=== PATIENT | male | born 1955 | race Caucasian/White ===

== ENCOUNTER 2021-01-05 21:14 | Inpatient (IN) | payer BC ==
[~2021-01-05] VITALS: Ht 180.3 cm; Wt 78.9 kg
[2021-01-05 21:20] VITALS: BP 126/97
[2021-01-05] MEDS ORDERED: CARVEDILOL6.25 M1 PO (21:28)
[2021-01-05] MEDS ORDERED: LISINOPRIL10 MG PO (21:28)
[2021-01-05] MEDS ORDERED: BLOOD THINNER (21:29)
[2021-01-05 21:51] LABS: ABSOLUTE BASOPHILS 0.1 thou/uL (0.0-0.2); ABSOLUTE EOSINOPHILS 0.5 thou/uL (0.0-0.7); ABSOLUTE LYMPHOCYTES 1.8 thou/uL (0.8-5.3); BASOPHILS 1.3 %; EOSINOPHILS 4.8 %; HEMATOCRIT 42.8 % (42.0-52.0); LYMPHOCYTES 17.1 %; MCH 32.3 pg (26.0-34.0); MCHC 35.1 g/dL (28.0-37.0); MCV 91.9 fL (80.0-100.0); MPV 8.6 fl. (7.2-11.1); NUCLEATED RBCS 0 /100WBC; PLATELET COUNT* 242 thou/uL (150-400); POLYS 66.8 %; RBC 4.66 mil/uL (4.50-6.00); RDW-CV 14.7 % (10.5-14.5); WBC 10.5 thou/uL (4.0-11.0)
[2021-01-05 21:57] LABS: CALCIUM 8.6 mg/dL (8.5-10.1); CREATININE 1.2 mg/dL (0.6-1.3); POTASSIUM 3.6 mmol/L (3.5-5.1)
[2021-01-05 22:05] LABS: URINE BILIRUBIN NEGATIVE (Negative); URINE BLOOD NEGATIVE (Negative); URINE CLARITY CLEAR; URINE COLOR YELLOW; URINE GLUCOSE-RANDOM NEGATIVE (Negative); URINE KETONES NEGATIVE (Negative); URINE LEUKOCYTES-REFLEX NEGATIVE (Negative); URINE NITRITE-REFLEX NEGATIVE (Negative); URINE PROTEIN NEGATIVE (Negative); URINE UROBILINOGEN 0.2 E.U./dl (0.2-1.0)
[2021-01-05 22:08] LABS: ALBUMIN 3.6 g/dL (3.4-5.0); MAGNESIUM 1.9 mg/dL (1.8-2.4); TOTAL BILIRUBIN 0.2 mg/dL (<0.1-1.0); TOTAL PROTEIN 6.9 g/dL (6.4-8.2)
[2021-01-06 02:20] VITALS: BP 95/66
[2021-01-06 06:20] VITALS: BP 105/54
[2021-01-06 11:06] VITALS: BP 130/61
--- NOTE | 2021-01-06 11:46 | EKG ---
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 ALBERTO Woo : 1955 Requested By: Brandy Bowie Order Number: [id number] MD: David Taylor Measurements Intervals [place] Rate: 151 P: [place]: QRS: 31 QRSD: 96 T: 193 QT: 284 QTc: 451 Interpretive Statements Atrial fibrillation Repolarization abnormality, prob rate related No previous ECG available for comparison Electronically Signed On 01-06-2021 11:46:46 CDT by David Taylor [email or web address] <ELECTRONICALLY SIGNED> By: David Taylor MD, [facility] 01/06/21 1146 17 17 David Taylor MD, [facility] /EPI
--- NOTE | 2021-01-06 11:52 | EKG ---
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 : 1955 Requested By: Brandy Bowie Order Number: [id number] MD: David Taylor Measurements Intervals [place] Rate: 60 P: 77 [place]: 165 QRS: 25 QRSD: 104 T: QT: 438 QTc: 438 Interpretive Statements Sinus rhythm Inferior infarct, old Abnrm T, consider ischemia, anterolateral lds Baseline wander in lead(s) I Compared to ECG 01/05/2021 21:18:37 Atrial fibrillation no longer present Electronically Signed On 01-06-2021 11:52:14 CDT by David Taylor [email or web address] <ELECTRONICALLY SIGNED> By: David Taylor MD, [facility] 01/06/21 1152 0454 0454 David Taylor MD, [facility] /EPI
[2021-01-06 12:59] VITALS: BP 110/69
[2021-01-06 14:17] LABS: CHOLESTEROL 181 mg/dL (<200); HDL CHOLESTEROL 30 mg/dL (>40); LDL CHOLESTEROL 120 mg/dL (<100); SERUM ASSESSMENT CLEAR; TRIGLYCERIDE 156 mg/dL (<150); VLDL 31 mg/dL (<40)
[2021-01-06 16:00] VITALS: BP 99/70
[2021-01-06] MEDS ORDERED: PLAVIX 75 MG TA75 MG PO (16:27)
[2021-01-06] MEDS ORDERED: LIPITOR40 MG PO (16:27)
[2021-01-06 19:50] VITALS: BP 92/57
[2021-01-07] VITALS (19 sets, daily range): BP systolic 94–141; BP diastolic 58–77
[2021-01-07 04:17] LABS: HEMATOCRIT 36.6 % (42.0-52.0); MCH 31.7 pg (26.0-34.0); MCHC 34.6 g/dL (28.0-37.0); MCV 91.5 fL (80.0-100.0); MPV 9.1 fl. (7.2-11.1); RDW-CV 14.6 % (10.5-14.5); WBC 8.7 thou/uL (4.0-11.0)
[2021-01-07 04:36] LABS: CALCIUM 7.9 mg/dL (8.5-10.1); CREATININE 1.1 mg/dL (0.6-1.3); POTASSIUM 3.9 mmol/L (3.5-5.1)
[2021-01-07 04:42] LABS: HEMOGLOBIN 12.7 gm/dL (14.0-18.0)
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
--- NOTE | 2021-01-07 13:34 | EKG ---
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 : 1955 Requested By: Brandy Bowie Order Number: [id number] Geremias MD: David Taylor Measurements Intervals [place] Rate: 48 P: 76 [place]: 161 QRS: 20 QRSD: 97 T: 154 QT: 454 QTc: 406 Interpretive Statements Sinus bradycardia Atrial premature complex Inferior infarct, old Abnrm T, consider ischemia, anterolateral lds Compared to ECG 01/06/2021 04:54:42 Atrial premature complex(es) now present Sinus rhythm no longer present Myocardial infarct finding still present Possible ischemia still present Electronically Signed On 01-07-2021 13:33:47 CDT by Dvaid Taylor [email or web address] <ELECTRONICALLY SIGNED> By: David Taylor MD, [facility] 01/07/21 1333 0856 0856 David Taylor MD, [facility] /EPI
--- NOTE | 2021-01-07 14:47 | 2DMMODE ---
[place] [address] 2 D/M-MODE ECHOCARDIOGRAM Name: VINNY PATEL Room: [address] IN [facility]#: [id number] Admission: 01/05/21 Attend Phys: Robbie Mayen Discharge: Date of : 59 Date of Service: 01/07/21 1446 Report #: [id number] THIS REPORT FOR: cc: FAM - No family physician/PCP FAM - No family physician/PCP Herbert Zafar MD [facility] ~ APPROVED REPORT Study performed: 01/07/2021 12:19:19 EXAM: Comprehensive 2D, Doppler, and color-flow Echocardiogram Patient Location: In-Patient Room #: 207 Status: routine BSA: 1.99 HR: 44 bpm BP: 108/61 mmHg Rhythm: NSR Other Information Study Quality: Good Indications Acute DC 2D Dimensions IVSd: 12.53 (7-11mm) LVOT Diam: 19.08 (18-24mm) LVDd: 57.27 mm PWd: 11.29 (7-11mm) LVDs: 38.72 (25-40mm) Aortic Root: 30.66 mm Volumes Left Atrial Volume (Systole) LA ESV Index: 33.90 mL/m2 Aortic Valve AoV Peak Claude.: 1.19 m/s AO Peak Gr.: 5.66 mmHg LVOT Max P.48 mmHg AO Mean Gr.: 2.97 mmHg LVOT Mean P.97 mmHg LVOT Max V: 1.17 m/s AO V2 VTI: 28.28 cm LVOT Mean V: 0.62 m/s ALLYSSA (VTI): 2.59 cm2 LVOT V1 VTI: 25.65 cm AI Jones: 1.11 m/s2 [place] [address] 2 D/M-MODE ECHOCARDIOGRAM Name: VINNY PATEL Room: [address]#: [id number] Admission: 01/05/21 Attend Phys: Robbie Mayen Discharge: Date of : 59 Date of Service: 01/07/21 1446 Report #: [id number] AI PHT: 928.47 ms Mitral Valve E/A Ratio: 1.14 MV Decel. Time: 214.06 ms MV E Max Claude.: 0.92 m/s MV PHT: 62.08 ms MVA (PHT): 3.54 cm2 TDI E/Lateral E': 10.22 E/Medial E': 13.14 Medial E' Claude.: 0.07 m/s Lateral E' Claude.: 0.09 m/s Pulmonary Valve PV Peak Claude.: 0.79 m/s PV Peak Gr.: 2.52 mmHg Tricuspid Valve RAP Estimate: 5.00 mmHg TR Peak Gr.: 19.79 mmHg RVSP: 24.00 mmHg PA Pressure: 24.00 mmHg Left Ventricle The left ventricle is normal size. There is mild global hypokinesis. Mild concentric left ventricular hypertrophy. Left ventricular systolic function is mildly decreased. LVEF is 40-45%. Transmitral Doppler flow pattern suggests impaired LV relaxation. Right Ventricle The right ventricle is normal size. The right ventricular systolic function is normal. Atria The left atrium size is normal. The right atrium size is normal. Aortic Valve The aortic valve is normal in structure. Mild aortic regurgitation. There is no aortic valvular stenosis. Mitral Valve The mitral valve is normal in structure. Mild mitral regurgitation. No evidence of mitral valve stenosis. Tricuspid Valve The tricuspid valve [place] [address] 2 D/M-MODE ECHOCARDIOGRAM Name: VINNY PATEL Room: [address]#: [id number] Admission: 01/05/21 Attend Phys: Robbie Mayen Discharge: Date of : 59 Date of Service: 01/07/21 1446 Report #: [id number] regurgitation. No pulmonary hypertension. Pulmonic Valve The pulmonary valve is normal in structure. There is no pulmonic valvular regurgitation. Great Vessels The aortic root is normal in size. IVC is normal in size and collapses >50% with inspiration. Pericardium There is no pericardial effusion. <Conclusion> The left ventricle is normal size. Mild concentric left ventricular hypertrophy. Left ventricular systolic function is mildly decreased. LVEF is 40-45%. Transmitral Doppler flow pattern suggests impaired LV relaxation. There is mild global hypokinesis. Mild aortic regurgitation. Mild mitral regurgitation. Trace tricuspid regurgitation. No pulmonary hypertension. IVC is normal in size and collapses >50% with inspiration. <ELECTRONICALLY SIGNED> By: Herbert Zafar MD, FACC 01/07/21 1446 1446 1446 Herbert Zafar MD, FACC /INF
--- NOTE | 2021-01-07 16:19 | CARD ---
[address] [address] CARDIAC CATH REPORT Name: VINNY PATEL Room: [address] IN [facility]#: [id number] Admission: 01/05/21 Attend Phys: Leah Thompson Discharge: Date of : 59 Report #: [id number] THIS REPORT FOR: cc: FAM - No family physician/PCP FAM - No family physician/PCP Herbert Zafar MD [facility] ~ APPROVED REPORT Study performed: 01/07/2021 13:14:18 Patient Details Patient Status: In-Patient Room #: The patient is a 65 year-old male Event Personnel Herbert Zafar Net Software Engineer, Johanna Rolon RN Recruitment Advertising Manager, Laura Paez RTR Scrub, Pablo Abraham CAPACITY PLANNING MANAGER Monitor Procedures Performed Coronary angiography, left heart catheterization and left ventriculography Indication Unstable angina , Chest pain Risk Factors Hypercholesterolemia, Hypertension, Diabetes Tobacco History () Previous Procedures/Diagnoses Previous PCI, Previous [place] Admission/Lab Medications/Medications given during procedure Aspirin Procedure Narrative The patient was brought electively to the Cardiac Catheterization Laboratory and was prepped and draped in a sterile manner. The left femoral was infiltrated with 1% Lidocaine subcutaneous anesthesia. A 6Fr x 12cm Ultimum sheath was inserted into the . Coronary angiography was performed using coronary diagnostic catheters. The right coronary system was accessed and visualized with a Diagnostic - JR4 catheter. The left coronary system was accessed and visualized [facility] [address] [place] [address] CARDIAC CATH REPORT Name: JORGEVINNY Room: [address] IN [facility]#: [id number] Admission: 01/05/21 Attend Phys: Leah Thompson Discharge: Date of : 59 Report #: [id number] with a Diagnostic - JL4 & AL2 catheter. The left ventricle was accessed and visualized with a Diagnostic - PIG catheter. Closure device was deployed with a Fr MynxGrip 6/7F. The patient tolerated the procedure well and there were no complications associated with the procedure. There was no hematoma. Intraoperative Conscious Sedation Sedation start time: 1347 Case end Time: 1423 Fentanyl 25 mcg Versed 1 mg Fluoro Time: 7.5 minutes Dose: DAP 44305 cGycm2 1489 mGy Contrast Type and Amount: Omnipaque 140 ml Coronary Angiography The patient's coronary anatomy is right dominant. Diagnostic Cath Left Main There is a common os for the left vein. LAD The left anterior descending coronary artery is free of significant disease in its proximal portion. There is a patent stent in the midportion. Distally there is a long stented region with 90% in-stent restenosis noted. There is a 99% stenosis noted in the apical portion of the LAD. Diagonal 1 A large diagonal branch has an 80% ostial stenosis. Circumflex The circumflex coronary artery is widely patent in its proximal portion. Distally there is a stent that is patent but has a 50% narrowing prior to the stented region. OM1 The first obtuse marginal branch is normal. OM2 A second obtuse marginal branch has a patent stent with a 50% narrowing just prior to the stented portion. OM3 The third obtuse marginal branch is a small vessel that is normal. Right Coronary The right coronary artery has a 90% in-stent restenosis in a very proximal stent. There is a stent to the midportion with a 50% stenosis just distal to the mid right coronary stent. R PDA The right PDA is free of significant disease. RPLV The right posterior lateral LV branch is free of significant disease. Left Ventriculography The left ventricle is normal in size [place] [address] CARDIAC CATH REPORT Name: VINNY PATEL Room: [address] IN [facility].#: [id number] Admission: 01/05/21 Attend Phys: Leah Thompson Discharge: Date of : 59 Report #: [id number] decreased contractility. The left ventricular ejection fraction is estimated to be 40-45%. Left ventricular wall motion abnormalities are present. The apex and inferior apical wall are akinetic. Overall LV systolic function appears mild to moderately decreased with an ejection fraction of 40 to 45%. Hemodynamics The aortic pressure is 181/52 mmHg with a mean of 62 mmHg. The left ventricular pressure is 148/9 mmHg with a mean of mmHg. The left ventricular end diastolic pressure is 23 mmHg. Conclusion 1. Severe three-vessel coronary artery disease as outlined above. 2. Mild to moderately decreased left ventricular systolic function. 3. Moderately elevated left ventricular end-diastolic pressure consistent with acute on chronic diastolic heart failure. Recommendations 1. Continue aggressive risk factor modification. 2. Consider referral for coronary artery bypass grafting. <ELECTRONICALLY SIGNED> By: Herbert Zafar MD, FACC 01/07/21 1619 1619 1619Micren Zafar MD, FACC /INF
[2021-01-08 00:24] VITALS: BP 157/54
[2021-01-08 04:00] VITALS: BP 153/76
[2021-01-08 06:13] LABS: ABSOLUTE EOSINOPHILS 0.3 thou/uL (0.0-0.7); ABSOLUTE LYMPHOCYTES 1.1 thou/uL (0.8-5.3); ABSOLUTE MONOCYTES 0.8 thou/uL (0.0-1.2); ABSOLUTE NEUTROPHILS 5.8 thou/uL (1.6-8.1); BASOPHILS 0.4 %; EOSINOPHILS 3.4 %; HEMATOCRIT 37.3 % (42.0-52.0); HEMOGLOBIN 13.2 gm/dL (14.0-18.0); LYMPHOCYTES 13.6 %; MCH 32.2 pg (26.0-34.0); MCHC 35.4 g/dL (28.0-37.0); MCV 90.7 fL (80.0-100.0); MONOCYTES 9.6 %; NUCLEATED RBCS 0 /100WBC; PLATELET COUNT* 198 thou/uL (150-400); RBC 4.11 mil/uL (4.50-6.00); RDW-CV 14.4 % (10.5-14.5); WBC 7.9 thou/uL (4.0-11.0)
[2021-01-08 06:26] LABS: CALCIUM 7.9 mg/dL (8.5-10.1); CREATININE 0.9 mg/dL (0.6-1.3); POTASSIUM 3.7 mmol/L (3.5-5.1)
[2021-01-08 08:00] VITALS: BP 149/67
[2021-01-08] MEDS ORDERED: DILTIAZEM 24HR180 M1 PO (08:47)
[2021-01-08] MEDS ORDERED: PLAVIX 75 MG TA75 M1 PO (08:47)
[2021-01-08] MEDS ORDERED: ROSUVASTATIN CA10 MG PO (08:47)
[2021-01-08] MEDS ORDERED: ASPIRIN325 PO (08:47)
[2021-01-08] MEDS ORDERED: NITROSTAT0.4 M1 BUCCAL (11:21)
[2021-01-08 11:27] VITALS: BP 141/77
[2021-01-08 11:35] VITALS: BP 141/77
== END 2021-01-08 12:10 | disposition home or self-care (01) | DRG 280 ==
LOC: M.ERS 21:14 → M.TBA-ER 22:21 → M.2W 22:21
PROVIDERS: Emergency Medicine; Family Medicine; Internal Medicine Cardiovascular Disease; ADMIT Internal Medicine; ATTEND Internal Medicine
PROC: B2111ZZ Fluoroscopy of Multiple Coronary Arteries using Low Osmolar Contrast (ICD-10-PCS; principal; 2021-01-07)
PROC: B2151ZZ Fluoroscopy of Left Heart using Low Osmolar Contrast (ICD-10-PCS; principal; 2021-01-07)
PROC: 4A023N7 Measurement of Cardiac Sampling and Pressure, Left Heart, Percutaneous Approach (ICD-10-PCS; principal; 2021-01-07)
DX: I21.4 Non-ST elevation (NSTEMI) myocardial infarction (principal); I50.33 Acute on chronic diastolic (congestive) heart failure; I48.20 Chronic atrial fibrillation, unspecified; I48.4 Atypical atrial flutter; T82.855A Stenosis of coronary artery stent, initial encounter; I25.10 Atherosclerotic heart disease of native coronary artery without angina pectoris; I73.9 Peripheral vascular disease, unspecified; I11.0 Hypertensive heart disease with heart failure; E78.5 Hyperlipidemia, unspecified; J43.9 Emphysema, unspecified; I48.0 Paroxysmal atrial fibrillation; Z20.822 Contact with and (suspected) exposure to COVID-19; Y83.8 Other surgical procedures as the cause of abnormal reaction of the patient, or of later complication, without mention of misadventure at the time of the procedure; Y92.89 Other specified places as the place of occurrence of the external cause; Z95.5 Presence of coronary angioplasty implant and graft; Z87.820 Personal history of traumatic brain injury; Z88.6 Allergy status to analgesic agent; Z71.6 Tobacco abuse counseling

== ENCOUNTER 2021-02-24 16:08 | Inpatient (IN) | payer BC ==
[~2021-02-24] VITALS: Ht 152.4 cm; Wt 79.4 kg
[~2021-02-24 16:08] MED LIST: ASPIRIN325 PO; BLOOD THINNER; CARVEDILOL6.25 M1 PO; DILTIAZEM 24HR180 M1 PO; LIPITOR40 MG PO; LISINOPRIL10 MG PO; NITROSTAT0.4 M1 BUCCAL; PLAVIX 75 MG TA75 M1 PO; PLAVIX 75 MG TA75 MG PO; ROSUVASTATIN CA10 MG PO
[2021-02-24 16:14] VITALS: BP 129/88
--- NOTE | 2021-02-24 17:13 | EKG ---
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 : 1955 Requested By: Vishal Vergara Order Number: [id number] MD: Christiano Mota Measurements Intervals [place] Rate: 56 P: 73 [place]: 165 QRS: 42 QRSD: 96 T: 107 QT: 436 QTc: 421 Interpretive Statements Sinus rhythm Repol abnrm suggests ischemia, lateral leads Compared to ECG 01/06/2021 08:56:25 Early repolarization now present Sinus bradycardia no longer present Atrial premature complex(es) no longer present Myocardial infarct finding no longer present Possible ischemia still present Electronically Signed On 02-24-2021 17:13:10 CDT by Christiano Mota [email or web address] <ELECTRONICALLY SIGNED> By: Christiano Mota MD, FAC 02/24/21 1713 1615 1615 Christiano Mota MD, [facility] /EPI
[2021-02-24 17:30] LABS: ABSOLUTE BASOPHILS 0.1 thou/uL (0.0-0.2); ABSOLUTE EOSINOPHILS 0.3 thou/uL (0.0-0.7); ABSOLUTE LYMPHOCYTES 1.4 thou/uL (0.8-5.3); BASOPHILS 1.5 %; EOSINOPHILS 3.3 %; HEMATOCRIT 40.9 % (42.0-52.0); HEMOGLOBIN 13.8 gm/dL (14.0-18.0); LYMPHOCYTES 15.6 %; MCH 31.2 pg (26.0-34.0); MCHC 33.7 g/dL (28.0-37.0); MCV 92.7 fL (80.0-100.0); MONOCYTES 11.6 %; MPV 8.7 fl. (7.2-11.1); NUCLEATED RBCS 0 /100WBC; PLATELET COUNT* 225 thou/uL (150-400); RBC 4.41 mil/uL (4.50-6.00); RDW-CV 14.6 % (10.5-14.5); WBC 8.9 thou/uL (4.0-11.0)
[2021-02-24 17:42] LABS: CALCIUM 8.9 mg/dL (8.5-10.1); CREATININE 1.5 mg/dL (0.6-1.3); POTASSIUM 4.2 mmol/L (3.5-5.1)
[2021-02-24 17:56] LABS: ALBUMIN 3.6 g/dL (3.4-5.0); CK-MB MASS 0.6 ng/mL (<0.5-3.6); TOTAL BILIRUBIN 0.4 mg/dL (<0.1-1.0); TOTAL PROTEIN 6.5 g/dL (6.4-8.2)
[2021-02-24 22:36] VITALS: BP 95/55
[2021-02-25] VITALS (11 sets, daily range): BP systolic 97–157; BP diastolic 58–71
[2021-02-25 04:28] LABS: ABSOLUTE EOSINOPHILS 0.3 thou/uL (0.0-0.7); ABSOLUTE LYMPHOCYTES 1.4 thou/uL (0.8-5.3); ABSOLUTE NEUTROPHILS 4.9 thou/uL (1.6-8.1); BASOPHILS 0.6 %; EOSINOPHILS 4.3 %; HEMATOCRIT 37.8 % (42.0-52.0); HEMOGLOBIN 12.8 gm/dL (14.0-18.0); LYMPHOCYTES 18.1 %; MCH 31.5 pg (26.0-34.0); MCHC 33.8 g/dL (28.0-37.0); MCV 93.2 fL (80.0-100.0); MONOCYTES 12.9 %; MPV 8.9 fl. (7.2-11.1); NUCLEATED RBCS 0 /100WBC; PLATELET COUNT* 190 thou/uL (150-400); POLYS 64.1 %; RBC 4.06 mil/uL (4.50-6.00); RDW-CV 14.3 % (10.5-14.5); WBC 7.7 thou/uL (4.0-11.0)
[2021-02-25 04:42] LABS: CALCIUM 8.3 mg/dL (8.5-10.1); CREATININE 1.4 mg/dL (0.6-1.3); POTASSIUM 4.4 mmol/L (3.5-5.1)
[2021-02-25 12:22] LABS: CK-MB MASS < 0.5 ng/mL (<0.5-3.6)
--- NOTE | 2021-02-25 14:29 | CARD ---
[address] [address] CARDIAC CATH REPORT Name: VINNY PATEL Room: [address] IN .R.#: [id number] Admission: 02/24/21 Attend Phys: Benjamín Miguel MD Discharge: Date of : 59 Report #: [id number] THIS REPORT FOR: cc: FAM - No family physician/PCP FAM - No family physician/PCP Christiano Mota MD [facility] ~ APPROVED REPORT Study performed: 02/25/2021 10:00:19 Patient Details The patient is a 65 year-old male Event Personnel Herbert Zafar Talent Coordinator, Ruben Rene RN RN, Pablo Abraham LOCATOR Monitor, Nacho Byrd RTR Scrub, Christiano Mota Vigoureux Printer Procedures Performed Left heart catheterization selective coronary arteriography and percutaneous coronary intervention with deployment of drug-eluting stents in the proximal and mid right coronary artery Indication Unstable angina Risk Factors Hypercholesterolemia, Hypertension Procedure Narrative The patient was brought electively to the Cardiac Catheterization Laboratory and was prepped and draped in a sterile manner. The left femoral was infiltrated with 2% Lidocaine subcutaneous anesthesia. A [place] 6 FR sheath was inserted into the . Coronary angiography was performed using coronary diagnostic catheters. The right coronary system was accessed and visualized with a 6F IM [id number] JR 4.0 catheter. The left coronary system was accessed and visualized with a JL4 6fr catheter. The left ventricle was accessed and visualized with a JL4 6fr (Pressures Only) catheter. Left ventricular/Aortic Valve gradient assessed via catheter pullback. Pre-demployment femoral angiogram was performed . Closure device was deployed with a Fr Angioseal STS 6Fr. The patient tolerated the procedure well and there were no complications associated with the procedure. [place] [address] CARDIAC CATH REPORT Name: JORGEVINNY Room: [address]#: [id number] Admission: 02/24/21 Attend Phys: Benjamín Miguel MD Discharge: Date of : 59 Report #: [id number] hematoma. Intraoperative Conscious Sedation Sedation start time: 1058 Case end Time: 1133 Fluoro Time: 8.9 minutes Dose: DAP 32493 cGycm2 1257 mGy Contrast Type and Amount: Visipaque 170 ml Coronary Angiography The patient's coronary anatomy is right dominant. Diagnostic Cath Left Main 0% narrowing LAD 30% proximal narrowing with 50% mid and distal stenosis Circumflex Nondominant vessel with 70% proximal second marginal narrowing and 75% tubular distal circumflex stenosis Right Coronary Dominant vessel with 90% proximal narrowing 80% mid vessel stenosis and 70% posterior descending branch narrowing Left Ventriculography Left Ventriculography was not performed. Hemodynamics The aortic pressure is 163/49 mmHg with a mean of 91 mmHg. The left ventricular pressure is 180/10 mmHg with a mean of mmHg. The left ventricular end diastolic pressure is 28 mmHg. There was no gradient across the aortic valve upon pullback. PCI Technique Lesion Anticoagulation was achieved with Angiomax. Patient was preloaded with Angiomax IV 12 ml. Percutaneous coronary intervention was performed on the mid right coronary artery. The lesion stenosis prior to intervention was 80% with JASKARAN 3 flow. A 6F IM 100CM Guide Catheter was used to engage the ostium. A IG: BMW 190cm Interventional Guidewire was used to cross the lesion. BALLOON DILATION A Balloon catheter Mini Trek RX 2.0 X 8 was inserted and inflated up to 14.00atm for 9seconds. Additional Inflation: 17.00atm for 7seconds. Additional Inflation: 17.00atm for 5seconds. 17 YANY FOR 9 SEC 20 YANY FOR 7 [place] [address] CARDIAC CATH REPORT Name: VINNY PATEL Room: [address] IN [facility]#: [id number] Admission: 02/24/21 Attend Phys: Benjamín Miguel MD Discharge: Date of : 59 Report #: [id number] A stent Hayti RX Stent 2.0X8mm was inserted and inflated up to 12.00atm for 6seconds. Additional Inflation: 12.00atm for 5seconds. Final angiography reveals 0 % stenosis with JASKARAN 3 flow. PCI Technique Lesion 2 Percutaneous Coronary Intervention was performed on the proximal right coronary artery. Percutaneous coronary intervention was performed on the Proximal right coronary artery. The lesion stenosis prior to intervention was 90% with JASKARAN 3 flow. Balloon Dilation A Balloon catheter Mini Trek RX 2.0 X 8 was inserted and inflated up to 20atm for 10seconds. Stent Deployment A drug-eluting stent Alejo RX Stent 2.5X8mm was inserted and inflated up to 14.00atm for 3seconds. Additional Inflation: 20.00atm for 5seconds. Additional Inflation: 21.00atm for 8seconds. Final angiography reveals 10 % stenosis with JASKARAN 3 flow. Conclusion 1. Significant coronary artery disease characterized by the following: A 30% proximal with 50% mid and distal LAD stenoses B 70% narrowing the proximal portion of the second marginal branch of the nondominant circumflex with 75% tubular distal circumflex stenosis C dominant right coronary artery with 90% proximal narrowing 80% mid vessel stenosis and 70% posterior descending branch narrowing 2. Moderate systemic systolic pressure elevation with significant elevation of left ventricular end-diastolic pressure at rest 3. Successful PCI with deployment of drug-eluting stents at the sites of 90% proximal and 80% mid right coronary stenosis with 10 and 0% residual narrowings and JASKARAN-3 flow to the distal [place] [address] CARDIAC CATH REPORT Name: VINNY PATEL Room: [address] IN [facility]#: [id number] Admission: 02/24/21 Attend Phys: Benjamín Miguel MD Discharge: Date of : 59 Report #: [id number] Cardiac Risk Reduction Program Aggressive Medical Therapy Medications Administered Aspirin (any) Prasugrel Diagnostic Cath Approved by: Herbert Zafar MD Date/Time: 02/25/2021 14:27:12 <ELECTRONICALLY SIGNED> By: Christiano Mota MD, [facility] 02/25/21 1429 1429 1429Christiano Mota MD, [facility] /INF
--- NOTE | 2021-02-25 15:55 | EKG ---
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: : 1955 Requested By: Herbert Zafar Order Number: [id number] Geremias MD: Christiano Mota Measurements Intervals [place] Rate: 44 P: 69 WV: 163 QRS: 23 QRSD: 97 T: 129 QT: 487 QTc: 417 Interpretive Statements Sinus bradycardia Inferior infarct, old Abnrm T, consider ischemia, anterolateral lds Compared to ECG 02/24/2021 16:15:17 Myocardial infarct finding now present Sinus rate has slowed Early repolarization no longer present Possible ischemia still present Electronically Signed On 02-25-2021 15:55:03 CDT by Christiano Mota [email or web address] <ELECTRONICALLY SIGNED> By: Christiano Mota MD, [facility] 02/25/21 1555 1300 1300 Christiano Mota MD, [facility] /EPI
[2021-02-26 03:52] LABS: HEMOGLOBIN 12.1 gm/dL (14.0-18.0); MCH 31.1 pg (26.0-34.0); MCHC 33.6 g/dL (28.0-37.0); MCV 92.4 fL (80.0-100.0); MPV 9.1 fl. (7.2-11.1); RBC 3.89 mil/uL (4.50-6.00); RDW-CV 14.4 % (10.5-14.5); WBC 7.7 thou/uL (4.0-11.0)
[2021-02-26 04:10] LABS: ALBUMIN 2.8 g/dL (3.4-5.0); ALKALINE PHOSPHATASE 56 U/L (46-116); ANION GAP 9 mmol/L (7-16); BUN 22 mg/dL (7-18); CALCIUM 7.6 mg/dL (8.5-10.1); CHLORIDE 107 mmol/L (98-107); CHOLESTEROL 115 mg/dL (<200); CO2 24 mmol/L (21-32); CREATININE 1.2 mg/dL (0.6-1.3); GLUCOSE 88 mg/dL (70-99); HDL CHOLESTEROL 35 mg/dL (>40); LDL CHOLESTEROL 62 mg/dL (<100); POTASSIUM 4.2 mmol/L (3.5-5.1); SGOT 11 U/L (15-37); SGPT 19 U/L (30-65); SODIUM 140 mmol/L (136-145); TC:HDL 3.3 Ratio (Not establshd); TOTAL BILIRUBIN 0.3 mg/dL (<0.1-1.0); TOTAL PROTEIN 5.4 g/dL (6.4-8.2); TRIGLYCERIDE 93 mg/dL (<150); VLDL 19 mg/dL (<40)
[2021-02-26 04:12] LABS: SERUM ASSESSMENT CLEAR
[2021-02-26 04:20] VITALS: BP 158/70
[2021-02-26 08:04] VITALS: BP 151/70
[2021-02-26] MEDS ORDERED: NEXIUM40 MG PO (08:21)
[2021-02-26 10:13] VITALS: BP 152/62
[2021-02-26 10:46] VITALS: BP 152/62
--- NOTE | 2021-02-26 11:17 | EKG ---
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 : 1955 Requested By: Herbert Zafar Order Number: [id number] Reading MD: Christiano Mota Measurements Intervals [place] Rate: 54 P: 82 MA: 159 QRS: 22 QRSD: 102 T: 130 QT: 480 QTc: 455 Interpretive Statements Sinus rhythm Repol abnrm suggests ischemia, anterolateral Compared to ECG 02/25/2021 13:00:04 Early repolarization now present Sinus bradycardia no longer present Myocardial infarct finding no longer present Possible ischemia still present Electronically Signed On 02-26-2021 11:17:12 CDT by Christiano Mota [email or web address] <ELECTRONICALLY SIGNED> By: Christiano Mota MD, [facility] 02/26/21 1117 0646 0646 Christiano Mota MD, [facility] /EPI
[2021-02-26 11:54] VITALS: BP 152/62
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
== END 2021-02-26 11:40 | disposition home or self-care (01) | DRG 247 ==
LOC: M.ERS 16:08 → M.TBA-ER 17:56 → M.2W 02-25 15:58
PROVIDERS: Family Medicine; Internal Medicine Cardiovascular Disease; ADMIT Internal Medicine; ATTEND Internal Medicine
PROC: 027035Z Dilation of Coronary Artery, One Artery with Two Drug-eluting Intraluminal Devices, Percutaneous Approach (ICD-10-PCS; principal; 2021-02-25)
PROC: B211YZZ Fluoroscopy of Multiple Coronary Arteries using Other Contrast (ICD-10-PCS; principal; 2021-02-25)
PROC: B41GYZZ Fluoroscopy of Left Lower Extremity Arteries using Other Contrast (ICD-10-PCS; principal; 2021-02-25)
PROC: 4A023N7 Measurement of Cardiac Sampling and Pressure, Left Heart, Percutaneous Approach (ICD-10-PCS; principal; 2021-02-25)
DX: I25.110 Atherosclerotic heart disease of native coronary artery with unstable angina pectoris (principal); I73.9 Peripheral vascular disease, unspecified; F17.210 Nicotine dependence, cigarettes, uncomplicated; K21.9 Gastro-esophageal reflux disease without esophagitis; E78.5 Hyperlipidemia, unspecified; Z20.822 Contact with and (suspected) exposure to COVID-19; Z82.49 Family history of ischemic heart disease and other diseases of the circulatory system; Z71.6 Tobacco abuse counseling; Z79.82 Long term (current) use of aspirin; Z79.899 Other long term (current) drug therapy; Z95.5 Presence of coronary angioplasty implant and graft; Z87.820 Personal history of traumatic brain injury